=== PATIENT | male | born 1970 | race African-American/Black ===

== ENCOUNTER 2018-08-10 23:02 | Inpatient (IN) | payer MEDICAID, OTHER ==
[~2018-08-10] VITALS: Ht 172.7 cm; Wt 56.2 kg
[2018-08-10 23:08] VITALS: Ht 172.7 cm; Wt 56.2 kg
[2018-08-11 00:11] LABS: BASOPHIL % 0.7 % (0-2); PLATELET COUNT 219 x10^3mcL (130-400); RED CELL DISTRIBUTION WIDTH 13.4 % (11.5-14.5)
[2018-08-11 00:17] LABS: CALCIUM 9.5 mg/dL (8.5-10.1); CARBON DIOXIDE 17.7 mmol/L (21-32); CREATININE SERUM 1.7 mg/dL (0.7-1.3); POTASSIUM SERUM 3.9 mmol/L (3.5-5.1)
[2018-08-11 00:30] LABS: ALBUMIN 4.3 g/dL (3.4-5.0); BILIRUBIN TOTAL 0.4 mg/dL (0.20-1.00); TOTAL PROTEIN, SERUM 7.9 g/dL (6.4-8.2)
[2018-08-11 01:43] LABS: MAGNESIUM 2.1 mg/dL (1.8-2.4); PHOSPHOROUS 4.1 mg/dL (2.5-4.9)
[2018-08-11 01:45] LABS: CHOLESTEROL/HDL RATIO 2.1
[2018-08-11 01:50] LABS: T3 TOTAL 0.74 ng/mL
[2018-08-11 02:05] VITALS: BP 122/83
[2018-08-11 02:09] LABS: FREE T4 0.99 ng/dL (0.76-1.46); FREE THYROXINE INDEX 2.2 ug/dL (1.4-4.5); T4(THYROXINE) 6.1 ug/dL (4.7-13.3)
[2018-08-11 02:21] LABS: microscopic required? NO
[2018-08-11 02:32] LABS: UA SPECIFIC GRAVITY 1.015 (1.005-1.035); urine erythrocyte NEGATIVE (NEGATIVE)
[2018-08-11 02:40] LABS: AMPHETAMINE QUAL UR NONE DETECTED (See below)
[2018-08-11 05:27] VITALS: BP 134/86
[2018-08-11 06:52] LABS: PLATELET COUNT 254 x10^3mcL (130-400); RED CELL DISTRIBUTION WIDTH 12.6 % (11.5-14.5)
[2018-08-11 07:02] LABS: CALCIUM 8.6 mg/dL (8.5-10.1); CARBON DIOXIDE 20.9 mmol/L (21-32); CHLORIDE SERUM 105 mmol/L (98-107); CREATININE SERUM 1.3 mg/dL (0.7-1.3); GFR1 > 60 mL/min; GLUCOSE SERUM 96 mg/dL (74-106); POTASSIUM SERUM 3.8 mmol/L (3.5-5.1); SODIUM SERUM 139 mmol/L (136-145)
[2018-08-11 09:56] VITALS: BP 161/93
[2018-08-11 12:57] VITALS: BP 142/87
[2018-08-11 14:01] LABS: ATYPICAL LYMPH 1 %; BAND NEUTROPHIL 6 % (0-10); BASOPHIL 0 % (0-2); MONOCYTE 6 % (0-7); SEGMENTED NEUTROPHILS 78 % (37-75)
[2018-08-11 14:02] LABS: PLATELET MORPHOLOGY PLATELETS NORMAL; rbc morphology (normal/abnorm) ABNORMAL (NORMAL)
[2018-08-11 17:03] VITALS: BP 136/88
[2018-08-11 19:40] VITALS: BP 117/72
[2018-08-12 05:58] VITALS: BP 118/76
[2018-08-12 06:44] LABS: BASOPHIL % 0.3 % (0-2); PLATELET COUNT 233 x10^3mcL (130-400); RED CELL DISTRIBUTION WIDTH 13.1 % (11.5-14.5)
[2018-08-12 06:52] LABS: CALCIUM 8.5 mg/dL (8.5-10.1); CARBON DIOXIDE 22.9 mmol/L (21-32); CHLORIDE SERUM 99 mmol/L (98-107); GFR1 > 60 mL/min; GLUCOSE SERUM 130 mg/dL (74-106); POTASSIUM SERUM 4.2 mmol/L (3.5-5.1); SODIUM SERUM 132 mmol/L (136-145)
[2018-08-12 09:55] VITALS: BP 129/82
[2018-08-12 12:40] VITALS: BP 134/84
[2018-08-12 16:47] VITALS: BP 117/74
[2018-08-12 19:30] VITALS: BP 116/75
[2018-08-13 05:42] VITALS: BP 117/78
[2018-08-13 06:38] LABS: PLATELET COUNT 215 x10^3mcL (130-400); RED CELL DISTRIBUTION WIDTH 13.3 % (11.5-14.5)
[2018-08-13 06:41] LABS: CALCIUM 7.8 mg/dL (8.5-10.1); CARBON DIOXIDE 24.6 mmol/L (21-32); CHLORIDE SERUM 108 mmol/L (98-107); CREATININE SERUM 0.9 mg/dL (0.7-1.3); GFR1 > 60 mL/min; GLUCOSE SERUM 91 mg/dL (74-106); SODIUM SERUM 144 mmol/L (136-145)
[2018-08-13 07:16] LABS: BASOPHIL % 0 % (0-2)
[2018-08-13 10:11] VITALS: BP 159/87
[2018-08-13 14:03] VITALS: BP 119/95
[2018-08-13 17:27] VITALS: BP 143/96
[2018-08-13 20:39] VITALS: BP 136/73
[2018-08-14 05:09] VITALS: BP 110/72
[2018-08-14 08:48] LABS: BASOPHIL % 0.4 % (0-2); PLATELET COUNT 245 x10^3mcL (130-400); RED CELL DISTRIBUTION WIDTH 13.4 % (11.5-14.5)
[2018-08-14 09:11] LABS: CALCIUM 8.8 mg/dL (8.5-10.1); CARBON DIOXIDE 31.4 mmol/L (21-32); CHLORIDE SERUM 105 mmol/L (98-107); CREATININE SERUM 0.9 mg/dL (0.7-1.3); GFR1 > 60 mL/min; GLUCOSE SERUM 106 mg/dL (74-106); POTASSIUM SERUM 4.2 mmol/L (3.5-5.1); SODIUM SERUM 139 mmol/L (136-145)
[2018-08-14 09:18] VITALS: BP 106/70
[2018-08-14] MEDS ORDERED: AMOXICILLIN/CLA1 TA6 PO (09:44)
[2018-08-14 10:08] VITALS: BP 106/70
== END 2018-08-14 12:09 | disposition home or self-care (01) | DRG 720 ==
LOC: ED 23:02 → DU 08-11 00:50
PROVIDERS: Emergency Medicine; Family Medicine; Internal Medicine
DX: A41.9 Sepsis, unspecified organism (principal); N17.0 Acute kidney failure with tubular necrosis; E87.2 Acidosis; K04.7 Periapical abscess without sinus; I48.91 Unspecified atrial fibrillation; Z68.1 Body mass index [BMI] 19.9 or less, adult; R73.03 Prediabetes; E87.1 Hypo-osmolality and hyponatremia; R59.0 Localized enlarged lymph nodes; F12.10 Cannabis abuse, uncomplicated; F55.8 Abuse of other non-psychoactive substances
CPT/HCPCS: 83880; 84439; G0480; J0295; J1885; J2001; J2270; J3490; J7030; Q0092; Q9967

== ENCOUNTER 2019-07-09 20:07 | Emergency (ER) | payer OTHER ==
[~2019-07-09] VITALS: Ht 172.7 cm; Wt 54.9 kg
[~2019-07-09 20:07] MED LIST: AMOXICILLIN/CLA1 TA6 PO
[2019-07-09 20:48] VITALS: Ht 172.7 cm; Wt 54.9 kg
[2019-07-09 21:36] LABS: BASOPHIL % 0.2 % (0-2); RED CELL DISTRIBUTION WIDTH 12.9 % (11.5-14.5)
[2019-07-09 21:40] LABS: CARBON DIOXIDE 24.7 mmol/L (21-32); CHLORIDE SERUM 100 mmol/L (98-107); GFR1 > 60 mL/min; GLUCOSE SERUM 111 mg/dL (74-106); POTASSIUM SERUM 4.1 mmol/L (3.5-5.1); SODIUM SERUM 136 mmol/L (136-145)
[2019-07-09 21:45] LABS: ALBUMIN 4.2 g/dL (3.4-5.0); ALKALINE PHOSPHATASE 52 U/L (46-116); ALT/SGPT 26 U/L (16-63); AST/SGOT 14 U/L (15-37); BILIRUBIN TOTAL 0.74 mg/dL (0.20-1.00); LIPASE 100 IU/L (73-393); TOTAL PROTEIN, SERUM 7.9 g/dL (6.4-8.2)
[2019-07-09 21:48] LABS: PLATELET COUNT 73 x10^3mcL (130-400)
[2019-07-09 22:47] VITALS: BP 117/77
== END 2019-07-09 22:47 | disposition home or self-care (01) ==
LOC: ED 20:07
PROVIDERS: Emergency Medicine
DX: K59.00 Constipation, unspecified (principal); Z85.71 Personal history of Hodgkin lymphoma
CPT/HCPCS: 36415; Q0092